=== PATIENT | female | born 1975 | race Caucasian/White ===

== ENCOUNTER 2017-12-14 11:24 | Emergency (ER) | payer OTHER ==
--- NOTE | 2017-12-14 11:44 | EDPHY ---
HPI/HX/ROS/PE/MDM Narrative: CHIEF COMPLAINT: Per written statement to EMS: "I feel systemically poisoned and think I may be dying." HPI: This is a 42 y/o female with a history of schizoaffective disorder per prior ED visit here for M1 hold 2015 for grave disability. She is currently not providing any information to me or the nursing staff regarding her visit today. She arrives via EMS from the [facility]. She made several odd statements to EMS through writing saying that she was either deaf or mute, which is not documented in her prior visit here. She told EMS she "won't write anything until talking with [employer]." There was some mention of atraumatic right knee swelling and "uterus problems" during her transport here. She also stated that she feels "systemically poisoned and I think I may be dying." She again has been alert and following commands, but non-communicative since arriving here. Prior to complete exam patient walked out of the department. REVIEW OF SYSTEMS: Unable to obtain. PMH: Schizoaffective disorder SOCIAL HISTORY: Unknown Prior medical records reviewed including ED note 06/11/16 for M1 hold for grave disability, she was not admitted at that time. PHYSICAL EXAM: General:Patient is alert, in no acute distress. Limited exam, see HPI. Neuro: Alert, following commands, moving all extremities. Not communicating verbally or through writing. ED Course: 1145: Patient walked out of the department prior to full exam and further history. As she was not on a hold and did not demonstrate signs of emergency medical condition, I do not feel we can hold her against her will. General Time Seen by Provider: 12/14/17 11:36 Initial Vital Signs: Initial Vital Signs Temperature (C) 36.8 C 12/14/17 11:48 Heart Rate 107 H 12/14/17 11:48 Respiratory Rate 14 12/14/17 11:48 Blood Pressure 108/85 H 12/14/17 11:48 O2 Sat (%) 99 12/14/17 11:48 O2 Delivery Mode Room Air Allergies/Adverse Reactions: No Known Allergies Allergy (Verified 12/14/17 21:41) Home Medications: Medication Instructions Recorded Unobtainable 12/16/17 Departure - Departure Disposition: Left Without Being Seen Referrals: Patient,NotPresent [Primary Care Provider] - As per Instructions Report Scribed for: Sarkis Khan Report Scribed by: Beatriz Zelaya Date of Report: 12/14/17 Time of Report: 11:44 Physician Review and Approval Statement: Portions of this note were transcribed by an ED scribe. I personally performed the history, physical exam, and medical decision making; and confirm the accuracy of the information in the transcribed note.
[2017-12-14 11:58] VITALS: BP 108/85
== END 2017-12-14 11:50 | disposition left against medical advice (07) ==
LOC: EDUNIT#
DX: Z53.21 Procedure and treatment not carried out due to patient leaving prior to being seen by health care provider (principal)

== ENCOUNTER 2017-12-14 15:30 | Inpatient (IN) | payer OTHER ==
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
[2017-12-14] MEDS ORDERED: OLANZapine DISINTEGR 5 MG TAB PO ONE ×2 (16:05→20:46)
[2017-12-14 16:46] LABS: PLATELET COUNT 330 10^3/uL (150-400)
[2017-12-14] MEDS ORDERED: POTASSIUM CL 20 MEQ TAB PO ONE (17:28)
[2017-12-14] MEDS ORDERED: IOPAMIDOL (ISOVUE-300) 100 ML BTL ONE (18:33)
[2017-12-14] MEDS ORDERED: POTASSIUM CL 20 MEQ/15 ML UDCUP ONE (19:32)
[2017-12-14] MEDS ORDERED: POTASSIUM CL 20 MEQ/15 ML UDCUP PO ONE (19:39)
[2017-12-14] MEDS ORDERED: LORazepam 2 MG/ML INJ IM ONE (22:13)
[2017-12-14] MEDS ORDERED: ACETAMINOPHEN 325 MG TAB PO PRN (23:55)
[2017-12-14] MEDS ORDERED: LORazepam 0.5 MG TAB PO PRN (23:55)
[2017-12-14] MEDS ORDERED: OLANZapine DISINTEGR 5 MG TAB PO PRN (23:56)
[2017-12-15] MEDS ORDERED: OLANZapine 10 MG/2 ML VIAL IM PRN (10:56)
[2017-12-15] MEDS ORDERED: LORazepam 2 MG/ML INJ IM PRN (10:56)
[2017-12-15] MEDS ORDERED: HALOPERIDOL LACT 5 MG/ML INJ IM PRN (10:58)
[2017-12-15] MEDS ORDERED: HALOPERIDOL 10 MG TAB PO PRN (10:58)
[2017-12-15] MEDS ORDERED: HALOPERIDOL 5 MG TAB PO PRN (11:30)
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
[2017-12-15] MEDS: OLANZapine DISINTEGR 10 MG TAB PO SCH ×2 (12:01→19:09)
--- NOTE | 2017-12-15 13:46 | BCON ---
[f rep st] BEHAVIORAL HEALTH CONSULTATION INTERNAL MEDICINE CONSULTATION DATE OF CONSULTATION: 12/15/2017 REFERRING PHYSICIAN: Hazel Guy MD REASON FOR CONSULTATION: Medical clearance for inpatient behavioral health stay. HISTORY OF PRESENT ILLNESS: This patient was brought to the emergency department yesterday on an M1 hold by [place] [employer]. She was acting erratic, shouting, screaming, paranoid, and with weird body contortions in the [facility] cafeteria. She was brought to the emergency department, evaluated by the mental health team and admitted for further psychiatric care. Currently, she expresses concern that she was given 2 injections yesterday and does not know what they were and that she is being held against her will, and reports that she very much wants to get home to see her dog and make sure that her possessions are intact. Otherwise, she is without any acute medical complaints. In the emergency department, she had complaints of abdominal pain and thought she might be bleeding from her vagina. A CT scan showed distention of the gallbladder but not consistent with cholecystitis, and urinalysis was possibly consistent with a urinary tract infection but also showed blood, ketones, and protein. She is not complaining of any urinary tract symptoms at this time. PAST MEDICAL HISTORY: 1. Schizoaffective disorder. 2. Shoulder dislocation. PAST SURGICAL HISTORY: She has had left shoulder surgery, and she has had oral surgery. MEDICATIONS: Prior to admission, she was prescribed lithium. ALLERGIES: There are no known drug allergies. SOCIAL HISTORY: She reports that she is on disability and lives alone with her dog. She is a nonsmoker, nondrinker. FAMILY HISTORY: Noncontributory. REVIEW OF SYSTEMS: She denies abdominal pain, fevers, chills, cough, dyspnea, nausea, vomiting, constipation, or diarrhea. A 16 kg weight loss is documented in the chart since May of 2016 when she was previously seen in the emergency department and, on discussing weight loss, she reports that it has been somewhat intentional, and she describes a very restrictive diet with eating a can of chicken and 2 eggs per day. She also reports that she has multiple abrasions that occurred from climbing a fence, and she said that she ran all the way from [place] to [place] yesterday. Otherwise, a 10-point review of systems is negative. PHYSICAL EXAM: VITALS: Blood pressure last night at midnight was 84/57, heart rate was 87, respiratory rate was 14, oxygen saturation was 94% on room air and , earlier in the evening, temperature was 36.8 and blood pressure was 128/80. Her weight is 52.2 kg for a body mass index of 19.7. GENERAL: This is a thin woman, appears her chronologic age, somewhat pale, dressed in a green hospital smock, sitting in bed, cooperative and in no acute distress. HEENT: Extraocular movements are intact. Pupils are equal, round, reactive to light. Mucous membranes are moist. Dentition is in good condition. NECK: Supple with no thyromegaly. HEART: Irregular rate and rhythm with no murmurs, rubs, or gallops. LUNGS: Clear to auscultation bilaterally. ABDOMEN: Benign. EXTREMITIES: There is no cyanosis, clubbing, or edema. NEUROLOGIC: She is alert and oriented x3. Cranial nerves 2-12 are grossly intact. She is distractible and loses track of the conversation but can be redirected. There is no focal weakness. Sensation is intact to light touch. SKIN: She has multiple abrasions on her palms and on her legs, but no erythema, no bleeding, no discharge, no eschar. LABORATORY STUDIES: From the emergency department, CBC showed an elevated white blood cell count at 12.79. There was no left shift. It was predominantly neutrophils with also an elevation of monocytes. She had mild anemia with hematocrit of 37.7. Hemoglobin was normal. Serum chemistry revealed a low potassium at 3.2, which was repleted orally in the emergency department, a low carbon dioxide at 18, an anion gap of 20. She had a low BUN at 5 and a low creatinine at 0.5. Beta hCG was negative for . Urinalysis was positive for 1+ protein, 2+ ketones, 3+ blood, trace of leukocyte esterase, 10-15 white blood cells, 1+ bacteria, trace epithelial cells. Toxicology screen in the serum revealed an undetectable lithium level and was negative for ethyl alcohol. Toxicology screen in the urine was non- negative for marijuana but otherwise negative for substances of abuse. ASSESSMENT/PLAN: 1. Mental health issues. Pending further evaluation and management per Psychiatry and the mental health team. 2. Weight loss. Unclear whether this was voluntary or involuntary. I see that a TSH has been ordered for tomorrow morning and this is appropriate, given her psychiatric state and weight loss, though she does not show other signs or symptoms of hyperthyroidism. She may have a component of restrictive diet, consistent with anorexia. Advise observing for normalization of oral intake as her psychiatric state is normalized. The actual chronology of this weight loss is unclear, though it has happened sometime over the last year and half. 3. Hypokalemia and anion gap of unclear etiology. Will add a BMP to her labs tomorrow. 4. Multiple abrasions. Expect these to heal with no complication and no specific treatment indicated. 5. Hematuria. Again, unclear etiology. If there is a bladder infection, it would probably be worthwhile to treat and then retest to see if she continues to have hematuria. Also, proteinuria was seen. The reason to hesitate on treatment would be that she does not show any specific signs or symptoms currently of a urinary tract infection. I see no medical contraindications to this patient's continued stay on the inpatient behavioral health unit or to any psychiatric medications or procedures. Thank you very much for including me in the care of this patient, and please do not hesitate to contact me or the hospitalist service should there be a need for further medical evaluation. /[id number]/MODL MTDD
[2017-12-15 19:12] LABS: CREATINE KINASE 1181 IU/L (0-156)
[2017-12-15] MEDS ORDERED: LORazepam 1 MG TAB PO SCH ×2 (21:00)
[2017-12-16] MEDS: LORazepam 1 MG TAB PO SCH ×2 (08:20→20:37)
[2017-12-16 08:43] LABS: CREATINE KINASE 199 IU/L (0-156)
[2017-12-16] MEDS ORDERED: NITROFURANTOIN MACROBID 100 MG CAP PO SCH (09:00)
[2017-12-16] MEDS: POTASSIUM CL 20 MEQ/15 ML UDCUP PO SCH (10:32)
[2017-12-16] MEDS ORDERED: LORazepam 0.5 MG TAB PO PRN (12:43)
--- NOTE | 2017-12-16 12:47 | SOAPPROG ---
SOAP Progress Note Assessment/Plan: Assessment: Schizoaffective Disorder bipolar type versus Bipolar Disorder with psychotic features History of childhood trauma Possible UTI Borderline dehydration (Na 145), mild hypokalemia (K 3.2) Patient admitted for severe agitation, paranoia, bizarre behavior, mood lability , and severe thought disorder. Patient appears gravely disabled by thought disorganization and bizarre statements, needs prompts for ADLs. Patient reports a history of bipolar disorder and benefit from lithium. Patient appears sedated by Olanzapine 5mg BID with Ativan 1mg BID but is much more calm. Plan: Short Term Certification Reduce Olanzapine ODT 5mg QHS Continue Ativan 1mg BID Start [place] 300mg daily (low dose due to risk of dehydration). Monitor PO intake, behavior, self-care Start K+ 20mEq daily for 5 days for hypokalemia Start Macrobid BID for 5 days for possible UTI Handmade Tile Artist called Animal Control regarding possible dog in apartment Added free T4 to previous blood work (had borderline low TSH) 12/16/17 12:54 Subjective: CC: "I wonder if I should put tape on my body." Patient is a poor historian with bizarre statements. Reports feeling excessively tired and sedated by medication and slowed down. Requests lithium, reports taking in the past as an outpatient but unwilling to explain where or at what dose. Reports past weight gain with Seroquel. Endorses paranoia, reports feeling scared of staff and patients. Endorses severe insomnia and distractibility before admit. Endorses past AH but not current AH. Denies pain or weakness or fevers or chills. Objective: Vital Signs Temp Pulse Resp BP Pulse Ox 36.9 C 92 16 105/65 95 12/16/17 06:00 12/16/17 06:00 12/16/17 06:00 12/16/17 06:00 12/16/17 06:00 Laboratory Results 12/16/17 06:20 12/15/17 12/16/17 12/17/17 05:59 05:59 05:59 Intake Total 850 Balance 850 Tired WF, slowed, appears sedated. Speech RRR. Mood 'I wonder if I need to put tape on my body.' Affect: internal preoccupation, distracted, anxious at times. Guarded, not cooperative with interview. Thoughts disorganized and tangential with loose associations. Bizarre and paranoid statements. Denies SI or HI. Denies AH. Insight poor. Staff report patient more calm less labile and less anxious this AM, needs prompts for ADLS (meals and clothing change), disorganized behavior on unit with limited ability to follow simple questions/tasks. Patient isolating to room and not attending groups. TSH 0.44 Lipids, HgbA1c WNL CK 199 Na 145, K 3.2 Cr 0.5 TSH 0.44 Patient was too disorganized to provide a clean catch UA. ER UA culture pending - mixed reynaldo. - Time Spent With Patient Time Spent With Patient: 30 minutes - Pending Discharge Pending Discharge Within 24 Hours: No Pending Discharge Within 48 Hours: No ICD10 Worksheet Patient Problems: Problems Problem Status Onset Paranoid schizophrenia Acute
--- NOTE | 2017-12-16 17:03 | SOAPPROG ---
SOAP Progress Note Assessment/Plan: Assessment: Possible subclinical hyperthyroidism. Doubt that it is contributing to her psychiatric state. Advise recheck of TSH in 4-6 weeks. Bacteriuria, likely asymptomatic. Would not treat unless she had specific symptoms of UTI. Streptococcus agalactiae a is likely a contaminant. Hypokalemia, unclear etiology. Informed that she has not been taking potassium supplement. Encourage patient to take potassium supplement as prescribed. Consider repeat BMP in several days. Likely rhabdomyolysis. Resolving. 12/16/17 17:00 Subjective: Reviewed labs. Objective: Vital Signs Temp Pulse Resp BP Pulse Ox 36.9 C 92 16 105/65 95 12/16/17 06:00 12/16/17 06:00 12/16/17 06:00 12/16/17 06:00 12/16/17 06:00 Laboratory Results 12/16/17 06:20 12/15/17 12/16/17 12/17/17 05:59 05:59 05:59 Intake Total 850 400 Balance 850 400 ICD10 Worksheet Patient Problems: Problems Problem Status Onset Paranoid schizophrenia Acute
[2017-12-16] MEDS: OLANZapine DISINTEGR 5 MG TAB PO SCH (20:36)
[2017-12-17] MEDS: LORazepam 1 MG TAB PO SCH ×2 (08:38→20:05)
[2017-12-17] MEDS: LITHIUM CARBONATE 300 MG CAP PO SCH (08:38)
[2017-12-17] MEDS: POTASSIUM CL 20 MEQ/15 ML UDCUP PO SCH (08:38)
--- NOTE | 2017-12-17 10:43 | SOAPPROG ---
SOAP Progress Note Assessment/Plan: Assessment: Schizoaffective Disorder bipolar type versus Bipolar Disorder with psychotic features History of childhood trauma Borderline dehydration and mild hypokalemia Patient admitted for severe agitation, paranoia, bizarre behavior, mood lability , and severe thought disorder. Patient appears more calm and more organized but is very guarded with paranoid delusions, has been napping and slept 9.5 hours overnight. Plan: Short Term Certification Continue Olanzapine ODT 5mg QHS Reduce Ativan 0.5mg BID and PRN anxiety/sleep Continue [place] 300mg daily (low dose due to risk of dehydration). Check BMP, [place] level 12/20 Monitor PO intake, behavior, self-care Lopper called Animal Control regarding possible dog in apartment 12/17/17 10:45 Subjective: CC: "better because I slept" Patient reports improved mood today due to sleeping past 2 nights. Reports paranoia that people in her apartment or stalking her and trying to kill her. Reports going 4-5 days without sleep prior to admit. Requests that her dog be brought to her. Refuses to discuss past outpatient or inpatient psychiatric care. Unable to identify any friends or family in the area who are supportive. Denies abdominal pain, fevers, chills, sweats, or feeling sedated by medications. Objective: Vital Signs Temp Pulse Resp BP Pulse Ox 36.6 C 79 12 92/53 L 98 12/17/17 06:20 12/16/17 18:31 12/17/17 06:20 12/17/17 06:20 12/17/17 06:20 Laboratory Results 12/16/17 06:20 12/16/17 12/17/17 12/18/17 05:59 05:59 05:59 Intake Total 850 800 Balance 850 800 Staff report patient slept 9.5 hours overnight. Isolative and not attending groups. Only ate 25% of meals yesterday but ate 80% of breakfast this AM. Thin WF disheveled. Speech RRR loud at times. Mood 'better because I slept.' Affect anxious. Thoughts briefly organized briefly but paranoid delusions. Very guarded attitude. Denies SI or HI. Insight poor. - Time Spent With Patient Time Spent With Patient: 25 minutes - Pending Discharge Pending Discharge Within 24 Hours: No Pending Discharge Within 48 Hours: No ICD10 Worksheet Patient Problems: Problems Problem Status Onset Paranoid schizophrenia Acute
[2017-12-17] MEDS: OLANZapine DISINTEGR 5 MG TAB PO SCH (20:05)
[2017-12-18] MEDS: POTASSIUM CL 20 MEQ/15 ML UDCUP PO SCH (08:11)
[2017-12-18] MEDS: LITHIUM CARBONATE 300 MG CAP PO SCH (08:11)
[2017-12-18] MEDS: LORazepam 1 MG TAB PO SCH ×2 (08:11→20:07)
--- NOTE | 2017-12-18 15:00 | SOAPPROG ---
SOAP Progress Note Assessment/Plan: Assessment: Per Dr. Holley's note: Assessment: Schizoaffective Disorder bipolar type versus Bipolar Disorder with psychotic features History of childhood trauma Borderline dehydration and mild hypokalemia Patient admitted for severe agitation, paranoia, bizarre behavior, mood lability , and severe thought disorder. Patient appears more calm and more organized but is very guarded with paranoid delusions, has been napping and slept 9.5 hours overnight. Plan: Short Term Certification Continue Olanzapine ODT 5mg QHS Reduce Ativan 0.5mg BID and PRN anxiety/sleep Continue [place] 300mg daily (low dose due to risk of dehydration). Check BMP, [place] level 12/20 Monitor PO intake, behavior, self-care Monitoring And Evaluation Advisor called Animal Control regarding possible dog in apartment Plan: 12/18/17 14:57 1. Less disorganized, but still paranoid and delusional. Patient says, "I've stopped talking about the bad forces b/c you guys aren't going to do anything about them." 2. Patient called [facility] and reports they won't be able to keep her "service dog" past Wednesday. However, CC spoke to [employer] and they indicated they could keep dog longer. Patient is perseverative about her dog a lot. She says, "I trusted the right people before and they let me down." MD tried to reassure patient that CC would be in touch with [facility] and would work with patient to make any necessary plans for her dog's wellbeing. 3. Patient has been taking PO meds. Has refused liquid K+ b/c she thinks "it could be poison." Subjective: Met with patient, reviewed chart and d/w staff. Patient is seated on her floor on a towel eating lunch. MD encouraged patient to have lunch in dining room, however, she says, "I want to be alone." Later patient came up to MD and said, "I just called the [facility]" and says that her dog can only stay at [facility] until "mid-day on Wednesday." MD assured patient that she can talk to her CC first thing Wednesday AM and they can contact [facility] together and make a plan for her dog. She continues to perseverate on dog and says that "there are bad people" outside who are trying to get her and she doesn't want anything to happen to her dog. Objective: Vital Signs Temp Pulse Resp BP Pulse Ox 37.1 C 99 16 102/60 97 12/18/17 06:12 12/18/17 06:12 12/18/17 06:12 12/18/17 06:12 12/18/17 06:12 Laboratory Results 12/16/17 06:20 12/17/17 12/18/17 12/19/17 05:59 05:59 05:59 Intake Total 800 1000 Balance 800 1000 MSE: Affect: Flat Mood: "OK" TP: Tangential, irrational TC: Denies any SI/HI , paranoid delusions about "bad forces" Insight/Judgment: Impaired - Time Spent With Patient Time Spent With Patient: 25" - Pending Discharge Pending Discharge Within 24 Hours: No Pending Discharge Within 48 Hours: No ICD10 Worksheet Patient Problems: Problems Problem Status Onset Paranoid schizophrenia Acute
[2017-12-18] MEDS: MAGNESIUM HYDROXIDE 30 ML UDCUP PO PRN (15:15)
[2017-12-18] MEDS: OLANZapine DISINTEGR 5 MG TAB PO SCH (20:07)
[2017-12-19] MEDS: POTASSIUM CL 20 MEQ/15 ML UDCUP PO SCH (08:49)
[2017-12-19] MEDS: LITHIUM CARBONATE 300 MG CAP PO SCH (08:50)
[2017-12-19] MEDS: LORazepam 1 MG TAB PO SCH ×3 (08:50→21:26)
--- NOTE | 2017-12-19 15:26 | SOAPPROG ---
SOAP Progress Note Assessment/Plan: Assessment: Per Dr. Holley's note: Assessment: Schizoaffective Disorder bipolar type versus Bipolar Disorder with psychotic features History of childhood trauma Borderline dehydration and mild hypokalemia Patient admitted for severe agitation, paranoia, bizarre behavior, mood lability , and severe thought disorder. Patient appears more calm and more organized but is very guarded with paranoid delusions, has been napping and slept 9.5 hours overnight. Plan: Short Term Certification Continue Olanzapine ODT 5mg QHS Reduce Ativan 0.5mg BID and PRN anxiety/sleep Continue [place] 300mg daily (low dose due to risk of dehydration). Check BMP, [place] level 12/20 Monitor PO intake, behavior, self-care Die Maker Trim called Animal Control regarding possible dog in apartment Plan: 12/18/17 14:57 1. Less disorganized, but still paranoid and delusional. Patient says, "I've stopped talking about the bad forces b/c you guys aren't going to do anything about them." 2. Patient called [employer] and reports they won't be able to keep her "service dog" past Wednesday. However, CC spoke to [employer] and they indicated they could keep dog longer. Patient is perseverative about her dog a lot. She says, "I trusted the right people before and they let me down." MD tried to reassure patient that CC would be in touch with [employer] and would work with patient to make any necessary plans for her dog's wellbeing. 3. Patient has been taking PO meds. Has refused liquid K+ b/c she thinks "it could be poison." 12/19/17 15:23 1. Patient more social and interactive with peers. Went to 2 groups today. 2. Patient took K+ liquid this AM after refusing it x 2 days. 3. Patient ate 100% of breakfast and drank more than 400cc's of fluid. 4. Patient slept 10 hrs last night. 5. CCM - patient improving Subjective: Met with patient, reviewed chart and d/w staff. Patient shows some signs of improvement today. She is less isolative, present in milieu more and interacting with peers by attending groups. She is eating well and drinking sufficient amounts of fluids. She denies any CAH/VH, though still reports fear of "bad people" who are following her. She denies any SI/HI. Objective: Vital Signs Temp Pulse Resp BP Pulse Ox 36.7 C 77 14 106/58 L 93 12/19/17 06:26 12/19/17 06:26 12/19/17 06:26 12/19/17 06:26 12/19/17 06:26 Laboratory Results 12/16/17 06:20 12/18/17 12/19/17 12/20/17 05:59 05:59 05:59 Intake Total 1000 750 Balance 1000 750 MSE: Affect: Euthymic Mood: "OK" TP: More organized and coherent TC: Denies SI/HI, no AH/VH, but still paranoid though less guarded Insight/Judgment: Improving - Time Spent With Patient Time Spent With Patient: 15" - Pending Discharge Pending Discharge Within 24 Hours: No Pending Discharge Within 48 Hours: No ICD10 Worksheet Patient Problems: Problems Problem Status Onset Paranoid schizophrenia Acute
[2017-12-19] MEDS: OLANZapine DISINTEGR 5 MG TAB PO SCH (21:18)
--- NOTE | 2017-12-20 07:49 | SOAPPROG ---
SOAP Progress Note Assessment/Plan: Assessment: Schizoaffective Disorder bipolar type versus Bipolar Disorder with psychotic features History of childhood trauma Borderline dehydration and mild hypokalemia Patient admitted for severe agitation, paranoia, bizarre behavior, mood lability , and severe thought disorder. Patient appears more calm but is very guarded, appears paranoid, refused HS Zydis/Zyprexa but taking PO [place] and Ativan. Patient is less isolative with improved PO intake. Plan: Short Term Certification Continue Olanzapine ODT 5mg QHS, encouraged compliance Continue Ativan 0.5mg BID and PRN anxiety/sleep Continue [place] 300mg daily (low dose due to risk of dehydration). Continue Potassium 20mg Eq BMP, [place] level pending Monitor PO intake, behavior, self-care, paranoia, thought disorder 12/20/17 07:49 Subjective: CC "Don't feel like talking" Patient unwilling to discuss events leading to hospitalization. Unwilling to discuss reasons for refusing HS Zyprexa. Unwilling to discuss support network in community or referrals for outpatient treatment. Reports not trusting staff but unable to explain in further detail. Agrees to continue [place] and Ativan. Objective: Vital Signs Temp Pulse Resp BP Pulse Ox 36.6 C 78 12 105/68 94 12/20/17 03:47 12/20/17 03:47 12/20/17 03:47 12/20/17 03:47 12/20/17 03:47 Laboratory Results 12/16/17 06:20 12/19/17 12/20/17 12/21/17 05:59 05:59 05:59 Intake Total 750 1000 Balance 750 1000 Alert WF, thin. Ambulatory without tremors or weakness. Speech soft few words. Mood 'don't feel like talking.' Affect restricted. Thoughts briefly organized but guarded. Reports paranoia - reports not trusting staff. Unable to explain supports or outpatient treatment teams. Denies AH. Denies SI or HI. Insight poor. Staff report patient slept 5.5 hours after refusing HS Zyprexa; did take extra 0.5mg Ativan at 2AM. Quiet, isolative, improved PO intake, attended a few groups but not speaking during groups. Cooperated with AM blood draw today. - Time Spent With Patient Time Spent With Patient: 15 minutes - Pending Discharge Pending Discharge Within 24 Hours: No Pending Discharge Within 48 Hours: No ICD10 Worksheet Patient Problems: Problems Problem Status Onset Paranoid schizophrenia Acute
[2017-12-20] MEDS: LITHIUM CARBONATE 300 MG CAP PO SCH (08:16)
[2017-12-20] MEDS: LORazepam 1 MG TAB PO SCH ×2 (08:16→20:10)
[2017-12-20] MEDS: DOCOSANOL 2 GM CREAM TP PRN ×2 (14:54→20:12)
[2017-12-20] MEDS: LITHIUM CARBONATE ER 450 MG TAB PO SCH (20:10)
[2017-12-20] MEDS: OLANZapine DISINTEGR 5 MG TAB PO SCH (20:21)
[2017-12-21] MEDS: LITHIUM CARBONATE ER 450 MG TAB PO SCH ×2 (08:29→19:36)
[2017-12-21] MEDS: LORazepam 1 MG TAB PO SCH (08:29)
[2017-12-21] MEDS ORDERED: OLANZapine DISINTEGR 5 MG TAB PO PRN (10:40)
--- NOTE | 2017-12-21 10:48 | SOAPPROG ---
SOAP Progress Note Assessment/Plan: Assessment: Bipolar Disorder with psychotic features History of childhood trauma Patient admitted for severe agitation, paranoia, bizarre behavior, mood lability , and severe thought disorder. Patient appears more calm and organized, refusing antipsychotic medications, compliant with [place] and Ativan. Patient reports past stability on lithium only. Plan: Short Term Certification Change Olanzapine ODT 5mg PRN agitation or paranoia Continue Ativan 0.5mg BID and PRN anxiety/sleep Continue [place] ER 450mg BID Check BMP and [place] level 12/23 If patient not significantly improved on therapeutic lithium level, consider applying for court ordered antipsychotic. Monitor PO intake, behavior, self-care, behavior 12/21/17 10:55 Subjective: CC: "I don't want the Zyprexa" Patient refuses to speak to M.D. and mostly nods head or shakes head in response to questions. Reports she is willing to continue [place] and Ativan but does not want to take Zyprexa or any antipsychotic medications. Reports past stability on [place] for several years. Unwilling to discuss discharge planning and psychiatric medication management. Unable to explain support network. Unwilling to discuss diagnosis and other treatment options. Objective: Vital Signs Temp Pulse Resp BP Pulse Ox 36.4 C 89 16 102/64 97 12/21/17 06:26 12/21/17 06:26 12/21/17 06:26 12/21/17 06:26 12/21/17 06:26 Laboratory Results 12/20/17 05:00 12/20/17 12/21/17 12/22/17 05:59 05:59 05:59 Intake Total 1000 1080 Balance 1000 1080 thin pale WF. Guarded, only few words, mostly not speaking to this M.D. Thoughts brief with minimal detail. Organized behavior with staff. Denies SI or HI or AH. Paranoid attitude. Insight limited. Staff report patient slept 5 hours, refused HS Zyprexa but compliant with [place] and Ativan. Able to attend some groups but not speaking much. Calm with staff, quiet and isolative mostly. - Time Spent With Patient Time Spent With Patient: 15 minutes - Pending Discharge Pending Discharge Within 24 Hours: No Pending Discharge Within 48 Hours: No ICD10 Worksheet Patient Problems: Problems Problem Status Onset Posttraumatic stress disorder Acute Bipolar disorder Acute Paranoid schizophrenia Acute
[2017-12-21] MEDS: CLOTRIMAZOLE 1% 15 GM CRTUBE TP SCH ×2 (13:11→19:37)
[2017-12-21] MEDS: LORazepam 0.5 MG TAB PO SCH (19:37)
[2017-12-22] MEDS: DOCOSANOL 2 GM CREAM TP PRN ×2 (01:12→18:03)
[2017-12-22] MEDS: LORazepam 0.5 MG TAB PO SCH ×2 (08:05→19:27)
[2017-12-22] MEDS: LITHIUM CARBONATE ER 450 MG TAB PO SCH ×2 (08:05→19:23)
[2017-12-22] MEDS: CLOTRIMAZOLE 1% 15 GM CRTUBE TP SCH ×2 (08:06→19:23)
--- NOTE | 2017-12-22 08:58 | SOAPPROG ---
SOAP Progress Note Assessment/Plan: Assessment: Bipolar Disorder with psychotic features History of childhood trauma Patient admitted for severe agitation, paranoia, bizarre behavior, mood lability , and severe thought disorder. Patient appears more calm and organized compared to admission, but is very guarded and unwilling to discuss diagnosis, treatment plan, and discharge planning. Unclear if patients unwillingness to discuss diagnosis and treatment planning is a component of thought disorder or related to chronic poor insight. Patient is cooperative with Ativan and [place] and is unwilling to take antipsychotic medications. Plan: Short Term Certification Change Olanzapine ODT 5mg PRN agitation or paranoia Continue Ativan 0.5mg BID and PRN anxiety/sleep Continue [place] ER 450mg BID Check BMP and [place] level and CK in AM If patient not significantly improved on therapeutic lithium level, consider applying for court ordered antipsychotic. Monitor PO intake, behavior, self-care, behavior 12/22/17 09:00 Subjective: CC: "I want to talk to my privacy attorney" Patient reports sleeping well and tolerating Ativan and [place]. Denies SI or HI or AH or paranoia. Refuses to discuss events leading to hospitalization. Refuses to discuss diagnosis, risks/benefits of medication, or discharge planning regarding follow up. Denies weakness, tremors, or feeling sedated. Reports not wanting to take antipsychotic medication and reports past stability with lithium only. Reports having an apartment and SS benefits. Objective: Vital Signs Temp Pulse Resp BP Pulse Ox 36.8 C 74 16 97/55 L 95 12/22/17 06:26 12/22/17 06:26 12/22/17 06:26 12/22/17 06:26 12/22/17 06:26 Laboratory Results 12/20/17 05:00 12/21/17 12/22/17 12/23/17 05:59 05:59 05:59 Intake Total 1080 1250 Balance 1080 1250 Staff report patient eating 75% of meals with good PO fluid intake. Calm and briefly pleasant with staff. Quiet, minimal speech, attending some groups but not speaking much. Alert thin WF. Ambulatory without tremors or weakness. Speech RRR. Mood 'I want to talk to my privacy attorney' Affect anxious at times. Thoughts process briefly organized with minimal information. Denies SI or HI or AH or paranoia. Insight limited/poor. - Time Spent With Patient Time Spent With Patient: 15 minutes - Pending Discharge Pending Discharge Within 24 Hours: No Pending Discharge Within 48 Hours: Yes Pending Discharge Date: 12/24/17 Pending Discharge Time: 11:00 ICD10 Worksheet Patient Problems: Problems Problem Status Onset Bipolar disorder Acute Paranoid schizophrenia Acute Posttraumatic stress disorder Acute
[2017-12-22] MEDS ORDERED: NAPROXEN SODIUM 220 MG TAB PO PRN (09:31)
[2017-12-22] MEDS ORDERED: ACETAMINOPHEN 325 MG TAB PO PRN (18:09)
[2017-12-23] MEDS: CLOTRIMAZOLE 1% 15 GM CRTUBE TP SCH ×2 (07:32→21:19)
[2017-12-23] MEDS: LITHIUM CARBONATE ER 450 MG TAB PO SCH ×2 (07:32→21:19)
[2017-12-23] MEDS: LORazepam 0.5 MG TAB PO SCH ×2 (07:33→21:19)
--- NOTE | 2017-12-23 09:10 | SOAPPROG ---
SOAP Progress Note Assessment/Plan: Assessment: Schizoaffective Disorder bipolar type versus Bipolar Disorder with psychotic features History of childhood trauma Patient admitted for severe agitation, paranoia, bizarre behavior, mood lability , and severe thought disorder. Patient appears more calm and is eating, but is paranoid, guarded, disorganized , refusing to take antipsychotic medications or cooperate with blood draws. Patient continues to appear disorganized and needs prompts for hygiene and meals. Plan: Short Term Certification 12/15/[address] ordered medication and blood draws 12/23/17 Offer Risperdal Mtab SL 0.5mg QHS and PRN agitation/paranoia Continue offering Ativan 0.5mg BID and PRN anxiety/sleep Continue [place] ER 450mg BID Check BMP, CK, [place] when willing to cooperate with blood draw If lethargic or appearing confused, will send to ER for blood draw Monitor PO intake, behavior, self-care, behavior 12/23/17 09:06 Subjective: CC: "I want to talk to my pattern grader" Patient refuses to explain her mood, thought content, or if she is having SI, HI , AH, or paranoia. Refuses to answer questions. Objective: Vital Signs Temp Pulse Resp BP Pulse Ox 36.9 C 72 16 101/53 L 95 12/23/17 06:30 12/23/17 06:30 12/23/17 06:30 12/23/17 06:30 12/23/17 06:30 Laboratory Results 12/20/17 05:00 12/22/17 12/23/17 12/24/17 05:59 05:59 05:59 Intake Total 1250 1000 Balance 1250 1000 Thin WF. Sitting quietly, disorganized shuffling of papers. Appears preoccupied. Speech RRR few words. Refused to describe mood or thought content , unable to assess for SI, HI, AH, or paranoia. Guarded attitude and refusing interview. Insight poor. Judgment impaired. Staff report patient only able to attend 1/5 groups, minimal speech. Eating 75 % of meals. Refusing antipsychotic medication, refusing Ativan, but compliant with [place]. Refused AM blood draw. Quiet, isolating to room, but attending meals and occasionally sitting in milieu. - Time Spent With Patient Time Spent With Patient: 10 minutes - Pending Discharge Pending Discharge Within 24 Hours: No Pending Discharge Within 48 Hours: No ICD10 Worksheet Patient Problems: Problems Problem Status Onset Bipolar disorder Acute Paranoid schizophrenia Acute Posttraumatic stress disorder Acute
[2017-12-23] MEDS ORDERED: RISPERIDONE ODT 0.5 MG TAB SL PRN (09:11)
[2017-12-23] MEDS: DOCOSANOL 2 GM CREAM TP PRN (18:00)
[2017-12-23] MEDS: RISPERIDONE ODT 0.5 MG TAB SL SCH (21:19)
[2017-12-24] MEDS: DOCOSANOL 2 GM CREAM TP PRN ×2 (07:31→22:16)
[2017-12-24] MEDS: CLOTRIMAZOLE 1% 15 GM CRTUBE TP SCH ×2 (07:31→22:16)
[2017-12-24] MEDS: LITHIUM CARBONATE ER 450 MG TAB PO SCH ×2 (07:31→22:00)
[2017-12-24] MEDS: LORazepam 0.5 MG TAB PO SCH (07:32)
--- NOTE | 2017-12-24 11:57 | SOAPPROG ---
SOAP Progress Note Assessment/Plan: Assessment: Schizoaffective Disorder bipolar type versus Bipolar Disorder with psychotic features History of childhood trauma Patient admitted for severe agitation, paranoia, bizarre behavior, mood lability , and severe thought disorder. Patient appears more calm, but is paranoid, guarded, disorganized, refusing to take antipsychotic medications or cooperate with blood draws. Patient continues to appear disorganized and needs prompts for hygiene and meals , refuses to discuss treatment plan or discharge planning. Plan: Short Term Certification 12/15/[address] ordered medication and blood draws 12/23/17 [address] hearing 12/30/17 @ 10:30AM Offer Risperdal Mtab SL 0.5mg QHS and PRN agitation/paranoia (patient refusing) Continue Ativan 0.5mg PRN anxiety/sleep Continue [place] ER 450mg BID Check BMP, CK, [place] when willing to cooperate with blood draw If lethargic or appearing confused, will send to ER for blood draw Monitor PO intake, behavior, self-care, behavior 12/24/17 11:55 Subjective: CC: "I don't want to talk to you I want to remain silent.' Patient refuses to answer most questions. Reports she is willing to take lithium but will not take any other medication, unwilling to take any antipsychotic medication, and is unwilling to have her blood drawn. She will not discuss treatment or discharge planning "I will only talk to my attorney general.' Unwilling to discuss risks/benefits/side-effects of medication or treatment plan or criteria for discharge. Objective: Vital Signs Temp Pulse Resp BP Pulse Ox 36.4 C 80 16 97/52 L 96 12/24/17 06:35 12/24/17 06:35 12/24/17 06:35 12/24/17 06:35 12/24/17 06:35 Laboratory Results 12/20/17 05:00 12/23/17 12/24/17 12/25/17 05:59 05:59 05:59 Intake Total 1000 1500 Balance 1000 1500 Staff report patient slept 5 hours. Eats 50% of meals but 1500cc fluid over past 24hours. Attending some groups but mostly silent. Patient seen with female staff present. Alert WF. Ambulatory without tremors or weakness. Refuses interview mostly, walks away impulsively. Speech RRR few words. Mood "I don't want to talk to you I want to remain silent.' Affect restricted, odd, paranoia. Unable to assess thought content further. Limited insight. Impaired judgment. - Time Spent With Patient Time Spent With Patient: 10 minutes - Pending Discharge Pending Discharge Within 24 Hours: No Pending Discharge Within 48 Hours: No ICD10 Worksheet Patient Problems: Problems Problem Status Onset Bipolar disorder Acute Paranoid schizophrenia Acute Posttraumatic stress disorder Acute
[2017-12-24] MEDS: RISPERIDONE ODT 0.5 MG TAB SL SCH (22:06)
[2017-12-25] MEDS: LITHIUM CARBONATE ER 450 MG TAB PO SCH ×2 (08:29→21:06)
[2017-12-25] MEDS: CLOTRIMAZOLE 1% 15 GM CRTUBE TP SCH ×2 (08:30→21:08)
--- NOTE | 2017-12-25 17:22 | SOAPPROG ---
SOAP Progress Note Assessment/Plan: Assessment: Per Dr. Holley's note: Assessment/Plan: Assessment: Schizoaffective Disorder bipolar type versus Bipolar Disorder with psychotic features History of childhood trauma Patient admitted for severe agitation, paranoia, bizarre behavior, mood lability , and severe thought disorder. Patient appears more calm, but is paranoid, guarded, disorganized, refusing to take antipsychotic medications or cooperate with blood draws. Patient continues to appear disorganized and needs prompts for hygiene and meals , refuses to discuss treatment plan or discharge planning. Plan: Short Term Certification 12/15/[address] ordered medication and blood draws 12/23/17 [address] hearing 12/30/17 @ 10:30AM Offer Risperdal Mtab SL 0.5mg QHS and PRN agitation/paranoia (patient refusing) Continue Ativan 0.5mg PRN anxiety/sleep Continue [place] ER 450mg BID Check BMP, CK, [place] when willing to cooperate with blood draw If lethargic or appearing confused, will send to ER for blood draw Monitor PO intake, behavior, self-care, behavior 12/25/17 17:19 1. Patient has started to refuse her Risperdal this week. Dr. Holley submitted letter for COM on 12/23/17. 2. Patient says she is prisoner being "held against my will." She was disruptive in groups and had to be asked to leave. 3. Patient having worse paranoid delusions and becoming more psychotic. 4. STC 5. Refusing blood draws. Subjective: Met with patient, reviewed chart and d/w staff. Patient continues to refuse Risperdal. She is more paranoid. She told peers she is a "prisoner" and is being "held against my will." She had to be asked to leave group this AM. She told CC that she has to "protect my organs" and doesn't want to take Risperdal b /c it "shortens my life." Patient said she doesn't care about lithium toxicity and plans to continue to refuse blood draws. Objective: Vital Signs Temp Pulse Resp BP Pulse Ox 36.5 C 78 16 98/56 L 97 12/25/17 07:02 12/25/17 07:02 12/25/17 07:02 12/25/17 07:02 12/25/17 07:02 Laboratory Results 12/20/17 05:00 12/24/17 12/25/17 12/26/17 05:59 05:59 05:59 Intake Total 1978 594 8286 Balance 8076 769 3570 MSE: Affect: Irritable Mood: Angry, hostile TP: Disorganized, irrational TC: Paranoid Insight/Judgment: Poor - Time Spent With Patient Time Spent With Patient: 15" - Pending Discharge Pending Discharge Within 24 Hours: No Pending Discharge Within 48 Hours: No ICD10 Worksheet Patient Problems: Problems Problem Status Onset Bipolar disorder Acute Paranoid schizophrenia Acute Posttraumatic stress disorder Acute
[2017-12-25] MEDS: RISPERIDONE ODT 0.5 MG TAB SL SCH ×2 (21:06→21:08)
[2017-12-26] MEDS: MAG HYDROX/AL HYDROX/SIMETH 30 ML UDCUP PO PRN ×2 (02:54→23:34)
[2017-12-26] MEDS: LITHIUM CARBONATE ER 450 MG TAB PO SCH ×2 (08:43→21:08)
[2017-12-26] MEDS: CLOTRIMAZOLE 1% 15 GM CRTUBE TP SCH ×2 (08:44→21:13)
--- NOTE | 2017-12-26 18:27 | SOAPPROG ---
SOAP Progress Note Assessment/Plan: Assessment: Per Dr. Holley's note: Assessment/Plan: Assessment: Schizoaffective Disorder bipolar type versus Bipolar Disorder with psychotic features History of childhood trauma Patient admitted for severe agitation, paranoia, bizarre behavior, mood lability , and severe thought disorder. Patient appears more calm, but is paranoid, guarded, disorganized, refusing to take antipsychotic medications or cooperate with blood draws. Patient continues to appear disorganized and needs prompts for hygiene and meals , refuses to discuss treatment plan or discharge planning. Plan: Short Term Certification 12/15/[address] ordered medication and blood draws 12/23/17 [address] hearing 12/30/17 @ 10:30AM Offer Risperdal Mtab SL 0.5mg QHS and PRN agitation/paranoia (patient refusing) Continue Ativan 0.5mg PRN anxiety/sleep Continue [place] ER 450mg BID Check BMP, CK, [place] when willing to cooperate with blood draw If lethargic or appearing confused, will send to ER for blood draw Monitor PO intake, behavior, self-care, behavior 12/25/17 17:19 1. Patient has started to refuse her Risperdal this week. Dr. Holley submitted letter for COM on 12/23/17. 2. Patient says she is prisoner being "held against my will." She was disruptive in groups and had to be asked to leave. 3. Patient having worse paranoid delusions and becoming more psychotic. 4. STC 5. Refusing blood draws. 12/26/17 18:24 1. Still refusing blood draw. Continues to refuse Risperdal. 2. STC 3. A[address] hearing for involuntary meds. Subjective: Met with patient, reviewed chart and d/w staff. Patient continues to perseverate on being help "prisoner" and feeling like her rights are being violated here. She is writing things down on scraps of paper, and notices she will shuffle and organize her papers while in milieu. Patient refuses Risperdal b/c she thinks it will shorten her life. Objective: Vital Signs Temp Pulse Resp BP Pulse Ox 36.6 C 77 14 100/59 L 98 12/26/17 06:59 12/26/17 06:59 12/26/17 06:59 12/26/17 06:59 12/26/17 06:59 Laboratory Results 12/20/17 05:00 12/25/17 12/26/17 12/27/17 05:59 05:59 05:59 Intake Total 840 1650 1000 Balance 840 1650 1000 MSE: Affect: Euthymic, but occasionally irritable when talking about being held captive Mood: "OK" TP: Disorganized, illogical TC: Denies any SI/HI, but still paranoid Insight/Judgment: Poor - Time Spent With Patient Time Spent With Patient: 20" - Pending Discharge Pending Discharge Within 24 Hours: No Pending Discharge Within 48 Hours: No ICD10 Worksheet Patient Problems: Problems Problem Status Onset Bipolar disorder Acute Paranoid schizophrenia Acute Posttraumatic stress disorder Acute
[2017-12-26] MEDS: RISPERIDONE ODT 0.5 MG TAB SL SCH (21:13)
[2017-12-27] MEDS: CLOTRIMAZOLE 1% 15 GM CRTUBE TP SCH ×2 (08:19→19:58)
[2017-12-27] MEDS: LITHIUM CARBONATE ER 450 MG TAB PO SCH ×2 (08:20→19:57)
--- NOTE | 2017-12-27 08:57 | SOAPPROG ---
SOAP Progress Note Assessment/Plan: Assessment: Bipolar Disorder with psychotic features History of childhood trauma and PTSD symptoms Patient admitted for severe agitation, paranoia, bizarre behavior, mood lability , and severe thought disorder. Patient appears more calm but reportedly had disorganized behavior and brief yelling on unit, continues to refuse further blood draws and continues to refuse to take antipsychotic medication. Plan: Short Term Certification 12/15/[address] ordered medication and blood draws 12/23/17 [address] hearing 12/30/17 @ 10:30AM Offer Risperdal Mtab SL 1mg QHS (patient refusing) Continue Ativan 0.5mg PRN anxiety/sleep Continue [place] ER 450mg BID Check BMP, CK, [place] when willing to cooperate with blood draw If lethargic or appearing confused, will send to ER for blood draw to check hydration and lithium level Monitor PO intake, self-care, behavior, impulse control, thought/behavior organization 12/27/17 08:57 Subjective: CC: "I don't want to talk to you." Patient refuses interview. Refuses to discuss diagnosis, risks/benefits of medications, treatment plan, or discharge criteria. Refuses to explain if she is having any somatic symptoms. Refuses to discuss whether or not she is having any dangerous thoughts, hallucinations, or paranoia. Objective: Vital Signs Temp Pulse Resp BP Pulse Ox 36.7 C 98 16 108/55 L 93 12/27/17 06:45 12/27/17 06:45 12/27/17 06:45 12/27/17 06:45 12/27/17 06:45 Laboratory Results 12/20/17 05:00 12/26/17 12/27/17 12/28/17 05:59 05:59 05:59 Intake Total 1650 1800 Balance 1650 1800 Alert thin WF sitting quietly in lounge watching TV with other patients. Refuses interview "I don't want to talk to you." Briefly irritable. Unable to assess mood, thought content further. Poor insight. Staff report over weekend patient having episodic disorganized behavior and inappropriate yelling at patients/staff, cooperative with lithium but refusing Risperdal. - Time Spent With Patient Time Spent With Patient: 10 minutes - Pending Discharge Pending Discharge Within 24 Hours: No Pending Discharge Within 48 Hours: No ICD10 Worksheet Patient Problems: Problems Problem Status Onset Bipolar disorder Acute Paranoid schizophrenia Acute Posttraumatic stress disorder Acute
[2017-12-27] MEDS: RISPERIDONE ODT 0.5 MG TAB SL SCH (19:57)
[2017-12-28] MEDS: MAG HYDROX/AL HYDROX/SIMETH 30 ML UDCUP PO PRN (01:55)
[2017-12-28] MEDS: LITHIUM CARBONATE ER 450 MG TAB PO SCH (08:33)
[2017-12-28] MEDS: CLOTRIMAZOLE 1% 15 GM CRTUBE TP SCH ×2 (08:36→20:06)
--- NOTE | 2017-12-28 10:31 | SOAPPROG ---
SOAP Progress Note Assessment/Plan: Assessment: Bipolar Disorder with psychotic features History of childhood trauma and PTSD symptoms Patient admitted for severe agitation, paranoia, bizarre behavior, mood lability , and severe thought disorder. Patient has consistently reduced sleep, mood lability, making paranoid and disruptive statements on unit with disorganized behavior. No current signs/symptoms of lithium toxicity. Patient compliant with lithium but refusing antipsychotic medication, refusing lorazepam, and refusing blood draws. Patient consistently refusing interview with M.D. and only has brief conversations with staff. Plan: Short Term Certification 12/15/[address] ordered medication and blood draws 12/23/17 [address] hearing 12/30/17 @ 10:30AM Offer Risperdal Mtab SL 1mg QHS (patient refusing) Continue Ativan 0.5mg PRN anxiety/sleep (patient refusing) Increase [place] 600mg BID Check BMP, CK, [place] when willing to cooperate with blood draw If lethargic or appearing confused, will send to ER for blood draw to check hydration and lithium level Monitor PO intake, self-care, behavior, impulse control, thought/behavior organization 12/28/17 10:32 Subjective: CC: "I don't want to talk to you" Patient refuses interview, puts hand in M.D.'s face abruptly, briefly yells, and walks away from interview. Objective: Vital Signs Temp Pulse Resp BP Pulse Ox 36.3 C 88 16 109/76 98 12/28/17 06:02 12/28/17 06:02 12/28/17 06:02 12/28/17 06:02 12/28/17 06:02 Laboratory Results 12/20/17 05:00 12/27/17 12/28/17 12/29/17 05:59 05:59 05:59 Intake Total 1800 1250 Balance 1800 1250 Alert pale WF. Ambulatory without weakness or tremors. Impulsively puts hand in front of M.D.'s face and walks away from interview after yelling that she doesn't want to talk. Bizarre, irritable affect. Speech brief yelling. Brief psychomotor agitation. Disorganized behavior and thinking. Unable to assess thought content or subjective mood. No insight, impaired judgment. Staff report patient eating and drinking well over past several days but only sleeping 4-6 hours nightly; attending groups but disruptive with loud, paranoid , and provocative statements, has labile affect (appearing anxious and dysphoric , alternating with laughing and expansive statements). Patient has been compliant with [place] but repeatedly refusing blood draws, refusing HS Risperdal, refusing PRN Ativan. - Time Spent With Patient Time Spent With Patient: 10 minutes - Pending Discharge Pending Discharge Within 24 Hours: No Pending Discharge Within 48 Hours: No ICD10 Worksheet Patient Problems: Problems Problem Status Onset Bipolar disorder Acute Paranoid schizophrenia Acute Posttraumatic stress disorder Acute
[2017-12-28] MEDS: DOCOSANOL 2 GM CREAM TP PRN ×2 (13:37→20:05)
[2017-12-28] MEDS: LITHIUM CARBONATE 600 MG CAP PO SCH (20:05)
[2017-12-28] MEDS: MELATONIN 3 MG TAB PO PRN (20:06)
[2017-12-28] MEDS: RISPERIDONE ODT 0.5 MG TAB SL SCH (20:07)
[2017-12-29] MEDS: MAG HYDROX/AL HYDROX/SIMETH 30 ML UDCUP PO PRN (03:28)
[2017-12-29] MEDS: DOCOSANOL 2 GM CREAM TP PRN (06:07)
[2017-12-29] MEDS: CLOTRIMAZOLE 1% 15 GM CRTUBE TP SCH ×2 (06:08→20:21)
[2017-12-29] MEDS: LITHIUM CARBONATE 600 MG CAP PO SCH ×2 (08:19→20:21)
--- NOTE | 2017-12-29 08:39 | SOAPPROG ---
SOAP Progress Note Assessment/Plan: Assessment: Bipolar Disorder Manic with psychotic features versus Schizoaffective Disorder bipolar type History of childhood trauma and PTSD symptoms Patient admitted for severe agitation, paranoia, bizarre behavior, mood lability , and severe thought disorder. Patient has consistently reduced sleep, mood lability, making paranoid and disruptive statements on unit with disorganized behavior. Patient is screaming with disorganized behavior on the unit this AM, but eating well on the unit. Patient needs prompts for hygiene and to attend meals, has disruptive and verbally abusive behavior in groups. Patient unwilling/unable to discuss risks/benefits of medication and treatment/ discharge planning. Plan: Short Term Certification 12/15/[address] ordered medication and blood draws 12/23/17 [address] hearing 12/30/17 @ 10:30AM Offer Risperdal Mtab SL 1mg QHS (patient refusing) Continue Ativan 0.5mg PRN anxiety/sleep (patient refusing) Continue [place] 600mg BID (refused this AM) Check BMP, CK, [place] when willing to cooperate with blood draw If lethargic or appearing confused, will send to ER for blood draw to check hydration and lithium level Monitor PO intake, self-care, behavior, impulse control, thought/behavior organization 12/29/17 08:39 Subjective: CC: "I wont talk to you, talk to my director shopper marketing, I wont take [place]" Patient screams numerous statements at this MD demanding multiple items, puts fingers in ears when asked questions, walks away from interview. Refuses to discuss lithium dosing, need for blood draws, risks/benefits of antipsychotic medications, or treatment/discharge planning issues. Objective: Vital Signs Temp Pulse Resp BP Pulse Ox 36.3 C 86 16 107/60 95 12/29/17 06:41 12/29/17 06:41 12/29/17 06:41 12/29/17 06:41 12/29/17 06:41 Laboratory Results 12/20/17 05:00 12/28/17 12/29/17 12/30/17 05:59 05:59 05:59 Intake Total 1250 770 Balance 1250 770 Alert WF, thin, ambulatory. Eating breakfast then pacing, caring a pillowcase containing clothing. Speech - brief yelling. Mood - unable to assess. Affect irritable, labile, paranoid. Thoughts disorganized with flight of ideas and loose associations. Unable to assess for dangerous thought content or AH as patient refusing interview. I/J poor. Staff report patient eating meals and slept 6 hours. Patient refused AM [place] today, refused HS Risperdal last night. On unit patient has been labile - screaming at times, anxious rocking on floor, tearful at times, later creating a list of 30 items she wants delivered to her. Patient has been removed from groups due to loud, provacative, and inappropriate statements. - Time Spent With Patient Time Spent With Patient: 10 minutes - Pending Discharge Pending Discharge Within 24 Hours: No Pending Discharge Within 48 Hours: No ICD10 Worksheet Patient Problems: Problems Problem Status Onset Bipolar disorder Acute Paranoid schizophrenia Acute Posttraumatic stress disorder Acute
[2017-12-29] MEDS: RISPERIDONE ODT 0.5 MG TAB SL SCH (20:21)
[2017-12-30] MEDS: CLOTRIMAZOLE 1% 15 GM CRTUBE TP SCH ×2 (04:08→20:06)
[2017-12-30] MEDS: DOCOSANOL 2 GM CREAM TP PRN (04:08)
[2017-12-30] MEDS: MAGNESIUM HYDROXIDE 30 ML UDCUP PO PRN (05:59)
[2017-12-30] MEDS: LITHIUM CARBONATE 600 MG CAP PO SCH (09:15)
[2017-12-30] MEDS ORDERED: LORazepam 2 MG/ML INJ IM PRN (12:26)
[2017-12-30] MEDS ORDERED: LORazepam 0.5 MG TAB PO PRN (12:26)
[2017-12-30] MEDS ORDERED: ZIPRASIDONE MESYLATE 20 MG VIAL IM PRN (12:28)
--- NOTE | 2017-12-30 12:35 | SOAPPROG ---
SOAP Progress Note Assessment/Plan: Assessment: Bipolar Disorder Manic with psychotic features versus Schizoaffective Disorder bipolar type History of childhood trauma and PTSD symptoms Patient reports history of autism Mildly increased LFTs, history of right ovarian/adnexal cyst, mild abdominal pain Patient was paranoid and labile and disorganized in court. After lengthy discussion following court upholding court ordered medication and certification , patient agreeable to take [place] (reports wanting 450mg BID and will cooperate with f/u blood draw) and prefers Geodon among the court ordered antipsychotic list. Patient has been making inappropriate sexual comments and paranoid statements with disorganized behavior on the unit. Plan: Short Term Certification and Court Ordered Medications [place] 450mg BID Geodon 20mg PO BID, if refused Geodon 10mg IM Ativan 1mg PO/IM [id number] PRN agitation Urinalysis to rule out UTI Baseline EKG tomorrow Check LFTs with BMP, [place] level in 4 days if taking PO [place] consistently Patients dog is at [employer], [facility], ISB1 precautions Monitor PO intake 12/30/17 12:43 Subjective: CC: "I will take the [place], I will take Geodon, I heard good things about it " "I think the staff is trying to kill me and rape me" "I want my dog" 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 and refused to testify to the collar trimmer but submitted a stack of papers that included handout on [place], her lunch menu, and a list of items that she wants ordered for her off of [employer]. In court she reported her only diagnosis was autism. On unit: Patient after hearing reports mild lower abdominal pain. No vomiting, diarrhea , fevers, or chills. Reports only wanting to take 450mg ER [place], will not take 600mg dose at this time. Reports over the antipsychotics reviewed in court wants to take Geodon. Reports not wanting to take Ativan regularly due to fear of dependency and cognitive impairment. Reports she will cooperate with medication and blood work and UA with goal of getting her service dog. Unable or unwilling to name any supports in the [facility]. Unwilling or unable to name past psychiatric hospitals or outpatient clinics that she receives treatment at. Objective: Vital Signs Temp Pulse Resp BP Pulse Ox 36.6 C 93 16 112/58 L 95 12/30/17 07:02 12/30/17 07:02 12/30/17 07:02 12/30/17 07:02 12/30/17 07:02 Laboratory Results 12/20/17 05:00 12/29/17 12/30/17 12/31/17 05:59 05:59 05:59 Intake Total 770 980 Balance 770 980 Alert WF. Speech RRR, brief yelling. Thoughts briefly organized but tangential with loose assocations at times. Paranoid that staff and patients are trying to kill her or sexually assault her. Denies SI or HI. Denies command AH currently. Poor insight. Staff report patient slept 4.5 hours, refusing [place] for 48 hours, refusing PRN medications. Labile, agitated, paranoid that staff and patients are murderers and rapist, made comments that a patient on unit needed to be raped. - Time Spent With Patient Time Spent With Patient: 90 minutes - [address], 15 minutes on unit. - Pending Discharge Pending Discharge Within 24 Hours: No Pending Discharge Within 48 Hours: No ICD10 Worksheet Patient Problems: Problems Problem Status Onset Bipolar disorder Acute Cannabis abuse Acute Paranoid schizophrenia Acute Posttraumatic stress disorder Acute
--- NOTE | 2017-12-30 14:16 | CPEKG ---
Heart Rate: 83 RR Interval: 723 P-R Interval: 148 QRSD Interval: 66 QT Interval: 360 QTC Interval: 423 P [place]: 12 QRS [place]: 52 T Wave [place]: 39 EKG Severity - NORMAL ECG - EKG Impression: SINUS RHYTHM Electronically Signed By: Ric Saucedo 30-Dec-2017 15:51:15
[2017-12-30] MEDS: LITHIUM CARBONATE ER 450 MG TAB PO SCH (17:42)
[2017-12-30] MEDS: ZIPRASIDONE HCL 20 MG CAP PO SCH (17:42)
[2017-12-31] MEDS: CLOTRIMAZOLE 1% 15 GM CRTUBE TP SCH ×2 (06:43→21:26)
[2017-12-31] MEDS: ZIPRASIDONE HCL 20 MG CAP PO SCH ×2 (07:53→18:00)
[2017-12-31] MEDS: LITHIUM CARBONATE ER 450 MG TAB PO SCH ×2 (07:54→18:01)
--- NOTE | 2017-12-31 13:05 | SOAPPROG ---
SOAP Progress Note Assessment/Plan: Assessment: Schizoaffective Disorder - bipolar type History of childhood trauma and PTSD symptoms Patient reports history of autism Mildly increased LFTs, history of right ovarian/adnexal cyst, mild abdominal pain, constipation R/O UTI Patient appears significantly improved after restarting [place] last night and starting Geodon last night following court hearing. Patient appears mildly disorganized and labile at times but more calm and appropriate. Plan: Short Term Certification and Court Ordered Medications Continue [place] 450mg BID Continue Geodon 20mg PO BID, if refused Geodon 10mg IM Ativan 1mg PO/IM [id number] PRN agitation Check CMP, [place] level Wednesday 01/03 UA and hospitalist re-evaluation for abdominal pain pending Start Senokot for constipation Patient's dog is at [employer], [facility], [place] precautions Monitor PO intake 12/31/17 13:06 Subjective: CC: "I know I need to trust you this time" Patient reports she will comply with [place]/Geodon. Reports sleeping well overnight. Reports continued fear of being harmed but patients and staff but denies feeling that anyone in particular will harm her. Had constipation, agrees to take a laxative, able to eat breakfast. Denies feeling agitated. Endorses overabundance of thoughts and episodic anxiety, depression, and irritability. Denies AH. Reports goal is to get her dog back. Objective: Vital Signs Temp Pulse Resp BP Pulse Ox 36.7 C 102 H 14 113/68 94 12/31/17 06:59 12/31/17 06:59 12/31/17 06:59 12/31/17 06:59 12/31/17 06:59 Laboratory Results 12/20/17 05:00 12/30/17 12/31/17 01/01/18 05:59 05:59 05:59 Intake Total 980 750 Balance 980 750 Alert WM. Ambulatory and cooperative, calm. Mood 'I know I need to trust you. ' Affect odd, preoccupied, briefly anxious, briefly sad. Speech RRR, loud and rambling at times. Thoughts organized but tangential with occasional loose associations. Denies SI or HI or AH. Reports paranoia toward patients and staff but reduced from previous. Limited insight. Questionable judgment. Staff report patient cooperated with urinalysis, compliant with BID [place] and Geodon since court hearing yesterday. Staff report patient slept 7.5 hours. Yesterday was disorganized, anxious, and paranoid at times. This AM was calm in group and ate breakfast. - Time Spent With Patient Time Spent With Patient: 20 minutes - Pending Discharge Pending Discharge Within 24 Hours: No Pending Discharge Within 48 Hours: No ICD10 Worksheet Patient Problems: Problems Problem Status Onset Cannabis abuse Acute Posttraumatic stress disorder Acute Bipolar disorder Acute Paranoid schizophrenia Acute
--- NOTE | 2017-12-31 17:47 | SOAPPROG ---
SOAP Progress Note Assessment/Plan: Assessment: Possible subclinical hyperthyroidism. Doubt that it is contributing to her psychiatric state. Advise recheck of TSH in 4-6 weeks. Bacteriuria, likely asymptomatic. Would not treat unless she had specific symptoms of UTI. Streptococcus agalactiae a is likely a contaminant. Hypokalemia, unclear etiology. Informed that she has not been taking potassium supplement. Encourage patient to take potassium supplement as prescribed. Consider repeat BMP in several days. Likely rhabdomyolysis. Resolving. 12/16/17 17:00 Left lower quadrant abdominal pain. Differential diagnosis includes diverticulitis however she is only mildly tender, afebrile and abdominal CT scan done on 12/14/2017 showed no diverticulosis. Also not consistent with nephrolithiasis and no upper or lower urinary tract stones were seen on the CT scan. She had bacteriuria when she was initially admitted. Culture grew strep agalactiae a which is likely a contaminant and a low colony count E coli; she was treated with nitrofurantoin to which the E coli was susceptible. Symptoms may be consistent with endometriosis. She has constipation. Discussed treatment options. She is agreeable to a trial of MiraLax which I will prescribe. If symptoms do not improve, advised referral to gynecology after discharge. 12/31/17 17:50 Subjective: Patient complains of left lower quadrant abdominal pain. She says sometimes she has swelling there as well but there is no swelling right now. She denies flank pain, fevers, chills, dysuria or urinary frequency she has never had abdominal surgery. She reports she has not had sex for approximately 2 years and had an evaluation for abdominal pain at [facility] in which she tested negative for STDs. There is no abnormal vaginal discharge. Pain waxes and wanes; she considers it possible that it may wax and wane with her menstrual period. Objective: Vital Signs Temp Pulse Resp BP Pulse Ox 36.7 C 102 H 14 113/68 94 12/31/17 06:59 12/31/17 06:59 12/31/17 06:59 12/31/17 06:59 12/31/17 06:59 Laboratory Results 12/20/17 05:00 12/30/17 12/31/17 01/01/18 05:59 05:59 05:59 Intake Total 980 750 Balance 980 750 Physical Exam - Physical Exam General Appearance: WD/WN, alert, no apparent distress Respiratory: No respiratory distress, No accessory muscle use Abdomen: normal bowel sounds, soft, other (Mildly tender left lower quadrant/ pelvis), No organomegaly, No distended, No guarding, No rebound, No mass, No hepatomegaly, No splenomegaly Neuro/Psych: no motor/sensory deficits, alert, normal mood/affect, oriented x 3 , No abnormal gait ICD10 Worksheet Patient Problems: Problems Problem Status Onset Cannabis abuse Acute Posttraumatic stress disorder Acute Bipolar disorder Acute Paranoid schizophrenia Acute
[2017-12-31] MEDS: SENNOSIDES 1 TAB PO SCH (21:26)
[2018-01-01] MEDS: MAG HYDROX/AL HYDROX/SIMETH 30 ML UDCUP PO PRN (05:34)
[2018-01-01] MEDS: CLOTRIMAZOLE 1% 15 GM CRTUBE TP SCH ×2 (06:19→21:23)
[2018-01-01] MEDS: LITHIUM CARBONATE ER 450 MG TAB PO SCH ×2 (08:19→20:12)
[2018-01-01] MEDS: SENNOSIDES 1 TAB PO SCH ×2 (08:19→20:12)
[2018-01-01] MEDS: ZIPRASIDONE HCL 20 MG CAP PO SCH ×2 (08:19→20:12)
[2018-01-01] MEDS: POLYETHYLENE GLYCOL 3350 17 GM PKT PO SCH (08:19)
--- NOTE | 2018-01-01 15:39 | SOAPPROG ---
SOAP Progress Note Assessment/Plan: Assessment: Per Dr. Holley's note: Assessment/Plan: Per Dr. Holley's notes: Assessment/Plan: Assessment: Schizoaffective Disorder - bipolar type History of childhood trauma and PTSD symptoms Patient reports history of autism Mildly increased LFTs, history of right ovarian/adnexal cyst, mild abdominal pain, constipation R/O UTI Patient appears significantly improved after restarting [place] last night and starting Geodon last night following court hearing. Patient appears mildly disorganized and labile at times but more calm and appropriate. Plan: Short Term Certification and Court Ordered Medications Continue [place] 450mg BID Continue Geodon 20mg PO BID, if refused Geodon 10mg IM Ativan 1mg PO/IM [id number] PRN agitation Check CMP, [place] level Wednesday 01/03 UA and hospitalist re-evaluation for abdominal pain pending Start Senokot for constipation Patient's dog is at [employer], [facility], ISB1 precautions Monitor PO intake Plan: 01/01/18 15:[address] Mcneil evaluated patient for LUQ pain on 12/31/17. Here are his recommendations: Assessment/Plan: Assessment: Possible subclinical hyperthyroidism. Doubt that it is contributing to her psychiatric state. Advise recheck of TSH in 4-6 weeks. Bacteriuria, likely asymptomatic. Would not treat unless she had specific symptoms of UTI. Streptococcus agalactiae a is likely a contaminant. Hypokalemia, unclear etiology. Informed that she has not been taking potassium supplement. Encourage patient to take potassium supplement as prescribed. Consider repeat BMP in several days. Likely rhabdomyolysis. Resolving. 2. Patient denied abdominal pain today. 3. Patient started on Geodon on after court order for involuntary meds. She has been compliant with involuntary meds including Geodon and [place]. 4. [place] level on Wednesday. 5. Slept 6.5 hrs. Subjective: Met with patient, reviewed chart and d/w staff. Patient went to court on and was ordered to take meds involuntary if necessary. So far, she has been compliant with Geodon and lithium. She had complained of abdominal pain and was evaluated by Dr. Mcneil. However, she denied any tenderness, flank pain or painful urination. He did not recommend any change to treatment. He did recommend f/u with PCP for repeat TSH in 4-6 weeks. Patient denies any SI/HI. Objective: Vital Signs Temp Pulse Resp BP Pulse Ox 37.0 C 87 14 102/59 L 95 01/01/18 06:31 01/01/18 06:31 01/01/18 06:31 01/01/18 06:31 01/01/18 06:31 Laboratory Results 12/20/17 05:00 12/31/17 01/01/18 01/02/18 05:59 05:59 05:59 Intake Total 750 930 711 Balance 750 930 711 MSE: Affect: Euthymic Mood: "OK" TP: More organized and coherent TC: Less paranoid and denies any SI/HI and AH/VH Insight/Judgment: Poor - Time Spent With Patient Time Spent With Patient: 15" - Pending Discharge Pending Discharge Within 24 Hours: Yes Pending Discharge Date: 01/02/18 (Possible d/c on Wednesday) Pending Discharge Time: 11:00 ICD10 Worksheet Patient Problems: Problems Problem Status Onset Bipolar disorder Acute Cannabis abuse Acute Paranoid schizophrenia Acute Posttraumatic stress disorder Acute
[2018-01-02] MEDS: CLOTRIMAZOLE 1% 15 GM CRTUBE TP SCH ×2 (07:03→21:16)
[2018-01-02] MEDS: ZIPRASIDONE HCL 20 MG CAP PO SCH ×2 (08:36→20:01)
[2018-01-02] MEDS: LITHIUM CARBONATE ER 450 MG TAB PO SCH ×2 (08:37→19:52)
[2018-01-02] MEDS: SENNOSIDES 1 TAB PO SCH ×2 (08:41→20:02)
[2018-01-02] MEDS: POLYETHYLENE GLYCOL 3350 17 GM PKT PO SCH (08:41)
--- NOTE | 2018-01-02 13:58 | SOAPPROG ---
SOAP Progress Note Assessment/Plan: Assessment: Per Dr. Holley's note: Assessment/Plan: Per Dr. Holley's notes: Assessment/Plan: Assessment: Schizoaffective Disorder - bipolar type History of childhood trauma and PTSD symptoms Patient reports history of autism Mildly increased LFTs, history of right ovarian/adnexal cyst, mild abdominal pain, constipation R/O UTI Patient appears significantly improved after restarting [place] last night and starting Geodon last night following court hearing. Patient appears mildly disorganized and labile at times but more calm and appropriate. Plan: Short Term Certification and Court Ordered Medications Continue [place] 450mg BID Continue Geodon 20mg PO BID, if refused Geodon 10mg IM Ativan 1mg PO/IM [id number] PRN agitation Check CMP, [place] level Wednesday 01/03 UA and hospitalist re-evaluation for abdominal pain pending Start Senokot for constipation Patient's dog is at [employer], [place]opement, ISB1 precautions Monitor PO intake Plan: 01/01/18 15:[address] Mcneil evaluated patient for LUQ pain on 12/31/17. Here are his recommendations: Assessment/Plan: Assessment: Possible subclinical hyperthyroidism. Doubt that it is contributing to her psychiatric state. Advise recheck of TSH in 4-6 weeks. Bacteriuria, likely asymptomatic. Would not treat unless she had specific symptoms of UTI. Streptococcus agalactiae a is likely a contaminant. Hypokalemia, unclear etiology. Informed that she has not been taking potassium supplement. Encourage patient to take potassium supplement as prescribed. Consider repeat BMP in several days. Likely rhabdomyolysis. Resolving. 2. Patient denied abdominal pain today. 3. Patient started on Geodon on after court order for involuntary meds. She has been compliant with involuntary meds including Geodon and [place]. 4. [place] level on Wednesday. 5. Slept 6.5 hrs. 01/02/18 13:52 1. Patient denied any abdominal pain today. Ate 100% of meals. 2. Patient no longer constipated, had successful BM last night after taking stool softener and laxative. 3. Patient requested to take Geodon at HS rather than 1800 d/t sedation. 4. STC and COM. Subjective: Met with patient, reviewed chart and d/w staff. Patient presents pleasant, cooperative and calm. She denies hallucinations and paranoid delusions. She requests to take Geodon at HS instead of 6pm with dinner. explained med has to be taken with sufficient amount of protein in order to be absorbed properly. She says she has been falling asleep after she takes it and not able to stay awake for evening group. Objective: Vital Signs Temp Pulse Resp BP Pulse Ox 36.4 C 87 16 117/58 L 96 01/02/18 06:43 01/02/18 06:43 01/02/18 06:43 01/02/18 06:43 01/02/18 06:43 Laboratory Results 12/20/17 05:00 01/01/18 01/02/18 01/03/18 05:59 05:59 05:59 Intake Total 930 1291 Balance 930 1291 MSE: Affect: Euthymic Mood: "Good" TP: Linear TC: Denies any SI/HI, no evidence of psychosis, not talking about paranoid delusions Insight/Judgment: Improved - Time Spent With Patient Time Spent With Patient: 15" - Pending Discharge Pending Discharge Within 24 Hours: No Pending Discharge Within 48 Hours: No ICD10 Worksheet Patient Problems: Problems Problem Status Onset Bipolar disorder Acute Cannabis abuse Acute Paranoid schizophrenia Acute Posttraumatic stress disorder Acute
[2018-01-02] MEDS: MAG HYDROX/AL HYDROX/SIMETH 30 ML UDCUP PO PRN (22:50)
[2018-01-02] MEDS: MELATONIN 3 MG TAB PO PRN (23:40)
[2018-01-03] MEDS: CLOTRIMAZOLE 1% 15 GM CRTUBE TP SCH ×2 (07:00→20:42)
[2018-01-03] MEDS ORDERED: SENNOSIDES 1 TAB PO PRN (07:34)
[2018-01-03] MEDS ORDERED: POLYETHYLENE GLYCOL 3350 17 GM PKT PO PRN (07:34)
--- NOTE | 2018-01-03 07:38 | SOAPPROG ---
SOAP Progress Note Assessment/Plan: Assessment: Schizoaffective Disorder - bipolar type History of childhood trauma and PTSD symptoms Patient reports history of autism Mildly increased LFTs, history of right ovarian/adnexal cyst, mild abdominal pain, constipation Patient appears significantly improved and able to complete wellness plan and agreeable to referral to outpatient services. Patient had paranoia delusions over the weekend but minimizes paranoia this AM. Plan: Short Term Certification and Court Ordered Medications Continue [place] 450mg BID Continue Geodon 20mg PO BID, if refused Geodon 10mg IM Ativan 1mg PO/IM [id number] PRN agitation CMP, [place] level pending Patient's dog is at [employer] Change laxatives to PRN Possible discharge in 48 hours if continued improvement and remission of paranoia 01/03/18 07:39 Subjective: CC: "Much better" Patient reports improved sleep and appetite over the weekend. Reports brief paranoia regarding 'Nazis' over the weekend, denies feeling that anyone on the unit is trying to hurt her however. Reports constipation resolved with laxatives. Reports wanting to be well for her dog. Reports willingness now to be referred to outpatient treatment. Reports mother in [place] will assist her in paying for outpatient treatment. Denies stiffness or tremors or excessive sedation from medications. Objective: Vital Signs Temp Pulse Resp BP Pulse Ox 36.9 C 82 16 129/58 H 97 01/03/18 06:30 01/03/18 06:30 01/03/18 06:30 01/03/18 06:30 01/03/18 06:30 Laboratory Results 12/20/17 05:00 01/02/18 01/03/18 01/04/18 05:59 05:59 05:59 Intake Total 1291 500 Balance 1291 500 Staff report patient slept well over the weekend and eating full meals. Made paranoid statements in groups but calm and more organized with better hygiene. Alert WF ambulatory without weakness or tremors. Speech RRR. Mood 'much better.' Affect euthymic, anxious at times. Thoughts organized but tangential at times. Denies SI or HI or AH. Reports no longer having paranoia about Nazis. Insight/judgment improved. - Time Spent With Patient Time Spent With Patient: 20 minutes - Pending Discharge Pending Discharge Within 24 Hours: No Pending Discharge Within 48 Hours: Yes Pending Discharge Date: 01/05/18 Pending Discharge Time: 11:00 ICD10 Worksheet Patient Problems: Problems Problem Status Onset Bipolar disorder Acute Cannabis abuse Acute Paranoid schizophrenia Acute Posttraumatic stress disorder Acute
[2018-01-03] MEDS: ZIPRASIDONE HCL 20 MG CAP PO SCH ×2 (08:22→20:36)
[2018-01-03] MEDS: LITHIUM CARBONATE ER 450 MG TAB PO SCH ×2 (08:22→20:36)
[2018-01-04] MEDS: CLOTRIMAZOLE 1% 15 GM CRTUBE TP SCH ×2 (06:11→21:27)
[2018-01-04] MEDS: DOCOSANOL 2 GM CREAM TP PRN (06:15)
[2018-01-04] MEDS: LITHIUM CARBONATE ER 450 MG TAB PO SCH ×2 (08:44→20:50)
[2018-01-04] MEDS: ZIPRASIDONE HCL 20 MG CAP PO SCH ×2 (08:44→20:50)
--- NOTE | 2018-01-04 08:47 | SOAPPROG ---
SOAP Progress Note Assessment/Plan: Assessment: Schizoaffective Disorder - bipolar type versus Bipolar Disorder with psychotic features History of childhood trauma and PTSD symptoms Patient reports history of autism Mildly increased LFTs, history of right ovarian/adnexal cyst, mild abdominal pain, constipation Patient appears significantly improved and able to complete wellness plan and agreeable to referral to outpatient services. Patient denies paranoia and has improved insight Plan: Short Term Certification and Court Ordered Medications [place] 450mg QAM and 900mg QHS, increased 01/03/18 Continue Geodon 20mg PO BID, if refused [place] 10mg IM Ativan 1mg PO/IM [id number] PRN agitation Patient's dog is at [employer] [facility] [employer] [employer] Possible discharge in AM 01/04/18 08:47 Subjective: CC: "they told me I could get my dog today" Patient reports talking to nursing staff regarding possibly obtaining dog from [employer] prior to possible discharge tomorrow. Reports tolerating increased dose of lithium without nausea, diarrhea, or excessive sedation. Denies stiffness or tremors or feeling sedated. Reports she had previously sought an outpatient appointment with psychiatrist Dr. Mcfarlane and is willing to be referred to him for outpatient follow up. Denies feeling scared or paranoid, denies feeling agitated. Objective: Vital Signs Temp Pulse Resp BP Pulse Ox 36.6 C 90 16 105/61 94 01/04/18 06:42 01/04/18 06:42 01/04/18 06:42 01/04/18 06:42 01/04/18 06:42 Laboratory Results 01/03/18 05:30 01/03/18 01/04/18 01/05/18 05:59 05:59 05:59 Intake Total 500 1330 Balance 500 1330 Alert WF. Ambulatory without tremors or weakness. Mood 'pretty good.' Affect euthymic. Speech RRR, briefly loud. Thoughts briefly organized, tangential at times. Denies SI or HI or AH. No evident delusions. Improved insight/ judgment. Staff report patient slept overnight and has been eating and drinking well. Odd statements in groups but calm and interacting more appropriately with other patients. Pacing on unit at times but pleasant with nursing staff. - Time Spent With Patient Time Spent With Patient: 20 minutes - Pending Discharge Pending Discharge Within 24 Hours: Yes Pending Discharge Date: 01/05/18 Pending Discharge Time: 11:00 ICD10 Worksheet Patient Problems: Problems Problem Status Onset Bipolar disorder Acute Cannabis abuse Acute Paranoid schizophrenia Acute Posttraumatic stress disorder Acute
[2018-01-04] MEDS: MAG HYDROX/AL HYDROX/SIMETH 30 ML UDCUP PO PRN (21:03)
[2018-01-05 07:00] VITALS: BP 111/60
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
[2018-01-05] MEDS: ZIPRASIDONE HCL 20 MG CAP PO SCH (09:15)
[2018-01-05] MEDS: LITHIUM CARBONATE ER 450 MG TAB PO SCH (09:15)
== END 2018-01-05 09:30 | disposition home or self-care (01) | DRG 885 ==
LOC: BBEH 23:35
PROVIDERS: ADMIT Psychiatry & Neurology Behavioral Neurology & Neuropsychiatry
DX: F31.2 Bipolar disorder, current episode manic severe with psychotic features (principal); F43.10 Post-traumatic stress disorder, unspecified; F12.959 Cannabis use, unspecified with psychotic disorder, unspecified; K59.00 Constipation, unspecified; E87.6 Hypokalemia; R63.6 Underweight; R82.71 Bacteriuria; E05.80 Other thyrotoxicosis without thyrotoxic crisis or storm
CPT/HCPCS: 80305; G0480; J2060; Q9967

== ENCOUNTER 2018-12-23 14:27 | Inpatient (IN) | payer OTHER ==
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
--- NOTE | 2018-12-23 22:33 | ASMTTCLDSP ---
TLC Discharge Disposition Disposition: Answers: Admit Disposition Notes: Notes: In consultation with [facility] ED physician, Rahul Lux MD and on-call psychiatrist, Saul Leary MD, both concurred that pt appears to meet 27-65 criteria requiring psychiatric hospitalization as pt appears to be at risk of harm to gravely disabled due to a mental illness condition. Pt was read the Patient Rights and Responsibilities Statement on 12/23/18 22:30 , original placed on chart, and was given photocopy of Rights. Pt declined to sign the Patient Rights. For inpatient Saul Leary MD admission, the following psychiatrist agreed to accept patient for admission to Behavioral Health ([facility]): Type of Hold: Answers: M1/72-hour Hold Hold initiated by: Answers: Police Date Signed: 12/23/2018 10:32 PM Electronically Signed By:Sarkis Wei
[2018-12-24] MEDS ORDERED: OLANZapine 10 MG/2 ML VIAL ONE (04:26)
[2018-12-24] MEDS ORDERED: OLANZapine 10 MG/2 ML VIAL IM ONE (04:40)
--- NOTE | 2018-12-24 09:41 | GCON ---
[f rep st] CONSULTATION PRIMARY CARE PHYSICIAN: Per previous records noted, patient was referred to the [facility]. CHIEF COMPLAINT: Paranoia, confusion. HISTORY OF PRESENT ILLNESS: This is a 43-year-old female with past medical history significant for bipolar I disorder with history of hospitalization, last in 2018, who presents to the emergency department on M1 hold by local PD for agitation, paranoia. Apparently, patient had been in the process of eviction and was refusing to leave the property when PD was called. She appeared to be complaining of people and events that were not actually present. There were concerns for patient's safety, so she was brought in under M1 hold. Since her arrival, patient has complained of wanting to be out of isolation and sent to general population. She is requesting to speak to an real estate associate attorney. She otherwise would refuse to answer any other questions and was having escalation in her agitation. REVIEW OF SYSTEMS: The patient just reports that she is feeling tired. She notes that she is unwell but otherwise healthy, but cannot clarify anymore, becomes increasingly agitated and declines to answer any other questions. ALLERGIES: No known drug allergies listed. MEDICATIONS: As per EMR. Geodon, Senokot, and lithium. PAST MEDICAL HISTORY: Significant for bipolar disorder. Patient denied high blood pressure, high cholesterol, or diabetes. PAST SURGICAL HISTORY: Listed left shoulder surgery. FAMILY HISTORY: Patient refused to respond. SOCIAL HISTORY: Patient recently evicted as noted in HPI. No current report of tobacco, drugs, or alcohol use. The patient has a listed history of cannabis use, but currently a negative U-tox. PHYSICAL EXAMINATION: VITAL SIGNS: Upon arrival, blood pressure is 130/83, heart rate 81, respiratory rate 16, O2 sat 99% on room air, temperature 36.9. The patient otherwise reports that she is refusing any other vital signs. GENERAL: Patient without any acute distress. When I enter, patient is asleep on the floor with her emotional support dog. She becomes increasingly agitated , refuses exam. HEAD: Normocephalic, atraumatic. EYES: Patient does have some conjunctival injection but no drainage. Pupils appear equal. The patient is able to sit up independently, appears to move all extremities, otherwise refuses exam. LABORATORY STUDIES: WBC 12.55, H and H 13.2 and 41.1, MCV of 86.6, platelet count 461. Sodium 140, potassium 3.8, chloride 107, CO2 of 17, anion gap 16, BUN 12, creatinine 0.6, GFR greater than 60, glucose 89, calcium 9.8. Beta hCG is negative. U-tox is negative. Ethyl alcohol less than 10. ASSESSMENT AND PLAN: 43-year-old female with history of bipolar I disorder, brought in under M1 hold for agitation and confusion. 1. Bipolar 1 disorder. Unclear if patient has been taking her medications as she is refusing to answer all questions. Plan is for patient to be admitted to [facility] for continued inpatient care. 2. Leukocytosis, mildly elevated. Patient is afebrile. Does not complain of any respiratory or other symptoms, although history is quite minimal. When patient becomes increasingly agitated, refuses to answer questions. Likely reactive. Monitor vitals. 3. Fluid/electrolyte/nutrition. Patient is tolerating oral hydration and minimal but regular diet. At this point, no need to repeat any laboratory studies. Continue to monitor clinically as patient will allow. Thank you for your hospitalist consultation. Please feel free to contact with any questions. /[id number]/MODL MTDD
[2018-12-24 11:48] VITALS: BP 110/65
[2018-12-24] MEDS ORDERED: ACETAMINOPHEN 325 MG TAB PO PRN (12:19)
[2018-12-24] MEDS ORDERED: OLANZapine DISINTEGR 10 MG TAB PO PRN (12:19)
[2018-12-24] MEDS ORDERED: NICOTINE POLACRILEX 2 MG GUM B PRN (12:19)
[2018-12-24] MEDS ORDERED: MAGNESIUM HYDROXIDE 30 ML UDCUP PO PRN (12:19)
[2018-12-24] MEDS ORDERED: MAG HYDROX/AL HYDROX/SIMETH 30 ML UDCUP PO PRN (12:19)
[2018-12-24] MEDS ORDERED: LORazepam 0.5 MG TAB PO PRN (12:19)
--- NOTE | 2018-12-24 16:13 | PDMN ---
Medical Necessity Medical necessity: Pt meets IP criteria per & NICHOLAS B-011-IP; est los >2 mn for eval/tx of psychosis; pt on M1 hold due to agitation & confusion; admit for further monitoring, safety, crisis stabilization & med management; hx bipolar 1 disorder; per consult & order 12/24/18
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
--- NOTE | 2018-12-25 16:27 | SOAPPROG ---
SOAP Progress Note Assessment/Plan: Assessment: 43 yo woman evicted from her apartment yesterday and refused to leave. Police were contacted and placed patient on [facility]. Patient was reportedly confrontational with police and uncooperative in ED. However, since admission to inpatient psych, she has been pleasant, calm and cooperative. Plan: 12/25/18 16:23 1. Patient continues to refuse all psych meds. Her presentation is calm, cooperative and agreeable. No overt psychotic sxs noticeable. 2. Patient is not making any threats or statements about wanting to hurt herself or anyone else. Will d/c SP1. 3. Patient will need f/u appts with outpatient providers at [facility]. 4. [facility] expires tomorrow. Subjective: Patient is sitting at table in front of TV (turned off) practicing her origami skills. She is worried about her automatic bill payment online. She tells MD and RN that she had to get a new credit card and she hasn't set up automatic bill payment with the new card yet. So, she's worried her pet insurance bill and her monthly hospital bill from her last admission will not get paid on time. MD let patient know that staff can assist her with setting that up on Wednesday if necessary. Patient denies any SI/HI. Objective: Vital Signs Temp Pulse Resp BP Pulse Ox 36.7 C 92 14 110/65 94 12/24/18 11:47 12/24/18 11:47 12/24/18 11:47 12/24/18 11:47 12/24/18 11:47 MSE: Affect: Pleasant, cooperative, does get a little irritable with male peer Mood: "OK" TP: Linear and goal-directed TC: Denies any SI/HI, denies paranoid delusions Perceptions: Denies any AH/VH Insight/Judgment: Improved - Time Spent With Patient Time Spent With Patient: 15" - Pending Discharge Pending Discharge Within 24 Hours: No Pending Discharge Within 48 Hours: No ICD10 Worksheet Patient Problems: Problems Problem Status Onset Acute psychosis Acute Bipolar disorder Acute Cannabis abuse Acute Paranoid schizophrenia Acute Posttraumatic stress disorder Acute
--- NOTE | 2018-12-26 08:53 | ASMTBHMTP ---
Master Treatment Plan Master Treatment Plan Answers: Impaired Reality for: Date: 12/26/2018 Diagnosis on Admission: Bipolar I Disorder, current or most recent episode depressed, with psychotic features Expected length of stay: 3-5 Days Reason for admission: Notes: Pt is a 43 year old single, female who presented to the [facility] ED on a M1. Pt would not participate in eval, perseverating that she would not speak without silk screen frame assembler present and that we were torturing her. The majority of evaluation information was obtained from collateral data: ED reports, M1 Hold, Previous inpt DC summary, and previous [facility] eval. Pt has a mini doberman / emil YEYO dog with her. It is very calm 99% of time. It startled hearing me enter and knocking on the door. It barked once, and then was very calm after the pt spoke to it. I kneeled down, and told pt I was lowering myself to make the dog feel more comfortable while I asked my questions. The dog appeared to notice when the pt agitated but remained very calm. Maintaining a calm not threatening posture the dog closed its eyes in her arms, despite her perseverating and varied agitated and pressured speech. It was requested by [facility] staff that pt remain informed about the Dogs where abouts while she is in pt if possible. Per M1 Hold " Respondant had been evicted from previous residence. Weas unwilling to leave property despite numerous warnings and advisements. Respondent had ideas of granduer and process that were not grounded in reality. Made statements referring to people and events that were not present. Pt appeared to be in crisis due to her recent eviction." Per ED Report "Patient was recently evicted from her home. She was refusing to leave the property. Police state she became extremely upset. She was screaming and yelling. Apparently this was nonsensical, referring to people and events that were not occurring. They felt that she was unable to care for herself and could be a danger to herself and other people given how aggressive she was during this period. On my evaluation she wants her appliquer zigzag. She will not speak to me." Patient's stated presenting problems: Notes: Patient refused to meet to complete MTP. Patient's goals for treatment: Notes: Patient refused to meet to complete MTP. Patient's strengths: Notes: Patient refused to meet to complete MTP. Identify supports outside of hospital: Notes: Patient refused to meet to complete MTP. Discharge criteria: Notes: Psychotic symptoms will be reduced or eliminated with return to baseline functioning is affect, thinking, and behavior prior to discharge. Initial disposition plan/considerations: Notes: Patient refused to meet to complete MTP. Master Treatment Plan Required Signatures Psychiatrist signature: Answers: MARCIA MachadoP: RN on-shift signature: Answers: RN: Patient signature: Answers: Patient: Date Signed: 12/26/2018 08:52 AM Electronically Signed By:Sabra Pike
--- NOTE | 2018-12-26 10:51 | ASMTBHDC ---
Notes Note: Notes: Pt. refused to speak with CC to complete MTP and follow up care. Pt. attended treatment team planning and refused to sign any [facility] form. Pt. stated staff need to call and confirm her YEYO dog is at the [employer]. Pt. wrote out her own SANTANA for the [employer] (in chart). Pt. will be [facility] the homeless [facility] with referral information for [facility] and [facility]. Pt. refuses to tell staff where she will be staying upon discharge. Pt. presents as alert, demanding, entitled, rude and uncooperative. Staff report pt. sleeping 8 hours. Pt. has referral information for [facility], [facility], [facility] and the [employer]. Date Signed: 12/26/2018 10:50 AM Electronically Signed By:Sabra Pike
--- NOTE | 2018-12-26 11:15 | BDS ---
[f rep st] BEHAVIORAL HEALTH DISCHARGE SUMMARY REASON FOR ADMISSION: From the ED note dated 12/23/2018, the patient was brought to the emergency department by police on a mental health hold. The patient was recently evicted from her home, was refusing to leave the property. The police reported she became extremely upset, was screaming and yelling. The patient was apparently nonsensical, referring to people and events that were not occurring. Police felt the patient was unable to care for herself and could possibly be a danger to herself and other people. The patient was admitted involuntarily and on an M1 hold. The patient was admitted for safety, crisis stabilization, and medication evaluation. ADMITTING DIAGNOSES: 1. Bipolar disorder, most recent episode manic with psychotic features. 2. Cannabis use disorder by history. 3. Posttraumatic stress disorder by history. 4. Homelessness. 5. Nonadherence and noncompliant with treatment. 6. Lack of social support. ADMISSION PHYSICAL EXAM: The patient was seen on 12/23/2018 for history and physical consultation for medical clearance for inpatient psychiatric hospitalization and treatment. Patient was medically cleared for inpatient psychiatric hospitalization and treatment. For further details, please refer to the ED and consultation note, dates 12/23/2018. ADMISSION LABS: 1. CBC within normal limits except white blood cells were elevated at 12.55, MCH was low at 27.6, MCHC was low at 31.9, and platelet count was elevated at 461. 2. BMP within normal limits except carbon dioxide level was low at 17, anion gap was elevated at 16. 3. Hemoglobin A1c WNL at 5.5. 4. Liver function WNL. 5. Lipid panel WNL. 6. Beta hCG qualitative test negative. 7. Toxicology screen negative for all the substances that were tested and negative for ethyl alcohol. MAJOR PROCEDURES OR TESTS: None. HOSPITAL COURSE: The most prominent symptoms and behaviors while the patient was here were reports of severe anxiety and the patient was irritable, agitated. Treatment modalities utilized were milieu and group therapy. Patient has improved considerably with no signs of psychiatric symptoms and no psychiatric symptoms expressed. Patient reports she has improved since admission, states to be in stable condition, feels safe to discharge, and she contracts for safety. Patients response to treatment was good. There were no adverse or unexpected results of treatment. The patient was safe throughout stay, active in treatment, engaged in groups, and was appropriate with staff. Patient met with treatment team prior to discharge to assess readiness to discharge and review discharge plan. The treatment team consensus is the patient in stable condition, has a safe discharge plan, and is ready to discharge today. CONDITION AT DISCHARGE: Patient is in stable condition and is no longer a danger to self or others, and is not gravely disabled due to mental illness. Patient is no longer in need of inpatient level of care, and can be safely and effectively treated within the community. The patients level of risk at time of discharge is low. MSE: The patient is casually dressed and with good hygiene , and looks stated age. Patient is sitting, posture is upright, and position is relaxed. Patient appears awake, alert, and responds appropriately and reasonably during interview. Patient is engaged, relates well to interviewer, and emotional facial expression is appropriate to situation and changes appropriately with topic. Patient is cooperative, makes comfortable eye contact , and movements are voluntary, deliberate, coordinated, and smooth and even with no inappropriate movements. Patient makes laryngeal sounds effortlessly and shares conversation appropriately; pace of conversation is appropriate, and stream of talking is fluent; articulation is clear and understandable; word choice is effortless and appropriate for education level; completes sentences, occasionally pausing to think; rate and volume are appropriate for interview and setting. Patient reports mood as euthymic. Patients affect is stable with full variable range, congruent with mood, and appropriate to speech and circumstances. Patient has linear and logical thinking, with no loose associations, tangential thought, thought blocking, concrete thinking, or any other signs of formal thought disorder. Patient denies suicidal and homicidal ideation, and denies hallucinations and delusions. Patient appears to be a reliable historian with sound judgement and good insight into current condition. Patient has no apparent dysfunction in recent or remote memory noted , and no evidence of gross cognitive dysfunction noted at any point during the interview. DISCHARGE DIAGNOSES: 1. Adjustment disorder with mixed disturbance of emotion and conduct. 2. Rule out bipolar disorder. 3. Rule out cannabis use disorder, severe. 4. Nonadherence to medical treatment. CURRENT MEDICATIONS: None. The patient reports at time of discharge, her preference at this time is to be prescribed no medications and reports she plans to follow up on an outpatient basis for ongoing medication evaluation and monitoring. DISPOSITION: The patient left hospital independently and voluntarily and plans to stay at the homeless custodial in [place]. FOLLOWUP: coordinator hotels reports the appropriate outpatient follow-up services have been established and outpatient appointments have been scheduled. The patient received written instructions with times and dates of outpatient follow-up appointments. LEGAL COURSE: The patient was admitted on an M1 hold for involuntary psychiatric hospitalization. The patient discharged today independently and voluntarily. ATTITUDE AT TIME OF DISCHARGE: The patients attitude was positive at time of discharge, and patient reports looking forward to discharging today. The patient reports she feels safe to discharge, is no longer a danger to herself or others, is in stable condition, and contracts for safety. LABS AND RADIOLOGY STUDIES: There were no pending labs or studies at time of discharge. ADVANCE DIRECTIVES: There were no advance directives on file, and patient was full code during this hospitalization. /[id number]/MODL MTDD
== END 2018-12-26 11:15 | disposition home or self-care (01) | DRG 882 ==
LOC: BBEH 12-24 10:40
PROVIDERS: ADMIT Psychiatry & Neurology Psychiatry; ATTEND Psychiatry & Neurology Psychiatry
DX: F43.25 Adjustment disorder with mixed disturbance of emotions and conduct (principal); Z91.19 Patient's noncompliance with other medical treatment and regimen; F31.9 Bipolar disorder, unspecified; Z59.0 Homelessness
CPT/HCPCS: 80305; G0480